=== PATIENT | female | born 1975 | race Two or more races ===

== ENCOUNTER 2017-07-06 11:53 | Emergency (ER) | payer OTHER ==
[~2017-07-06] VITALS: Ht 172.7 cm; Wt 121.1 kg
[~2017-07-06 11:53] MED LIST: CEFADROXIL500 MG PO; INTESTINEX1 CA1 PO; PROTONIX40 MG PO; VALTREX1000 MG PO
== END 2017-07-06 15:42 | disposition home or self-care (01) ==
LOC: ER 11:53
DX: K52.9 Noninfective gastroenteritis and colitis, unspecified (principal)

== ENCOUNTER 2018-02-10 09:36 | Emergency (ER) | payer OTHER ==
[~2018-02-10] VITALS: Ht 167.6 cm; Wt 117.9 kg
[2018-02-10] MEDS ORDERED: NORFLEX100MG PO (13:17)
[2018-02-10] MEDS ORDERED: KETO10TA2 PO (13:17)
== END 2018-02-10 14:02 | disposition home or self-care (01) ==
LOC: ER 09:36
DX: K57.30 Diverticulosis of large intestine without perforation or abscess without bleeding (principal); R10.9 Unspecified abdominal pain

== ENCOUNTER 2018-12-16 09:32 | Emergency (ER) | payer OTHER ==
[~2018-12-16] VITALS: Ht 167.6 cm; Wt 114.3 kg
[~2018-12-16 09:32] MED LIST changes: +KETO10TA2 PO; +NORFLEX100MG PO
== END 2018-12-16 16:02 | disposition home or self-care (01) ==
LOC: ER 09:32
DX: R10.31 Right lower quadrant pain (principal)

== ENCOUNTER 2020-08-31 12:55 | Emergency (ER) | payer OTHER ==
[~2020-08-31] VITALS: Ht 170.2 cm; Wt 127.0 kg
== END 2020-08-31 16:41 | disposition home or self-care (01) ==
LOC: ER 12:55
DX: N39.0 Urinary tract infection, site not specified (principal)

== ENCOUNTER 2020-12-06 11:00 | Inpatient (IN) | payer OTHER ==
[~2020-12-06] VITALS: Ht 167.6 cm; Wt 118.8 kg
[2020-12-13] MEDS ORDERED: CEFADROXIL500 MG PO (06:56)
[2020-12-13] MEDS ORDERED: POLY119PG PO (06:56)
[2020-12-13] MEDS ORDERED: IBUPROFEN800 MG PO (06:56)
[2020-12-13] MEDS ORDERED: SIMETHICONE125 M1 PO (06:56)
[2020-12-13] MEDS ORDERED: NEURONTIN600 MG PO (06:56)
== END 2020-12-13 08:52 | disposition home or self-care (01) | DRG 743 ==
LOC: O/R 12-11 05:30 → OB/GYN 12-11 05:30 → SURH 12-11 11:00 → OB/GYN 12-11 11:12 → SURH 12-11 11:30 → OB/GYN 12-11 13:34
PROVIDERS: ADMIT Obstetrics & Gynecology; ATTEND Obstetrics & Gynecology
PROC: 0UT10ZZ Resection of Left Ovary, Open Approach (ICD-10-PCS; 2020-12-11)
PROC: 0UT60ZZ Resection of Left Fallopian Tube, Open Approach (ICD-10-PCS; 2020-12-11)
PROC: 0UT90ZZ Resection of Uterus, Open Approach (ICD-10-PCS; principal; 2020-12-11 11:30)
DX: D25.1 Intramural leiomyoma of uterus (principal); N72 Inflammatory disease of cervix uteri; N80.0 Endometriosis of uterus; N32.89 Other specified disorders of bladder; N83.12 Corpus luteum cyst of left ovary; N83.6 Hematosalpinx; N93.9 Abnormal uterine and vaginal bleeding, unspecified; R10.2 Pelvic and perineal pain; I10 Essential (primary) hypertension

== ENCOUNTER 2022-12-17 09:49 | Emergency (ER) | payer OTHER ==
[~2022-12-17] VITALS: Ht 167.6 cm; Wt 127.0 kg
[~2022-12-17 09:49] MED LIST changes: +IBUPROFEN800 MG PO; +NEURONTIN600 MG PO; +POLY119PG PO; +SIMETHICONE125 M1 PO
[2022-12-17] MEDS ORDERED: LOSARTAN-HCTZ1 EACH PO (10:23)
== END 2022-12-17 16:51 | disposition home or self-care (01) ==
LOC: ER 09:49
DX: M79.641 Pain in right hand (principal); Z91.013 Allergy to seafood

== ENCOUNTER 2023-05-19 08:20 | Emergency (ER) | payer OTHER ==
[~2023-05-19] VITALS: Ht 167.6 cm; Wt 131.5 kg
[~2023-05-19 08:20] MED LIST changes: +LOSARTAN-HCTZ1 EACH PO
[2023-05-19] MEDS ORDERED: KETOROLAC TROMETHAMINE 30 MG VIAL IM STA (10:18)
== END 2023-05-19 11:05 | disposition home or self-care (01) ==
LOC: ER 08:21
DX: J06.9 Acute upper respiratory infection, unspecified (principal); Z20.822 Contact with and (suspected) exposure to COVID-19; M25.552 Pain in left hip

== ENCOUNTER 2024-04-02 15:19 | Emergency (ER) | payer OTHER ==
[~2024-04-02] VITALS: Ht 160 cm; Wt 99.8 kg
[2024-04-02] MEDS ORDERED: CETIRIZINE HCL 5 MG/5 ML ML PO ONE (17:30)
[2024-04-02] MEDS ORDERED: GUAIFENESIN/DEXTROMETHORPHAN 10ML BLIST.PACK PO ONE ×2 (17:30→17:32)
[2024-04-02] MEDS ORDERED: METHYLPREDNISOLONE SOD SUCC 125 MG VIAL IV ONE (17:30)
[2024-04-02] MEDS ORDERED: IPRATROPIUM/ALBUTEROL SULFATE 3 ML AMPUL.NEB IH SCH (17:30)
[2024-04-02] MEDS ORDERED: METHYLPREDNISOLONE SOD SUCC 125 MG VIAL ONE (17:32)
[2024-04-02] MEDS ORDERED: CETIRIZINE HCL 5MG/5ML BLIST.PACK PO ONE (17:32)
[2024-04-02 18:03] LABS: HEMATOCRIT 39.1 % (36.0-45.00); HEMOGLOBIN 12.8 g/dL (12.0-15.00); MEAN CELL VOLUME 87.3 fL (80.00-100.00); MEAN CORPUSCULAR HEMOGLOBIN 28.6 pg (27.00-32.0); MEAN CORPUSCULAR HGB CONC 32.7 g/dl (32.0-36.0); PLATELET COUNT 571 K/uL (150-450); RED BLOOD COUNT 4.48 M/uL (4.00-6.00); RED CELL DISTRIBUTION WIDTH 13.5 % (11.5-14.5)
[2024-04-02] MEDS ORDERED: IPRATROPIUM/ALBUTEROL SULFATE 3 ML AMPUL.NEB IH ONE (18:47)
[2024-04-02] MEDS ORDERED: ALBUTEROL1.25 MG/3 IH (19:50)
[2024-04-02] MEDS ORDERED: SINGULAIR10 MG PO (19:50)
[2024-04-02] MEDS ORDERED: BENZONATATE150 MG PO (19:50)
[2024-04-02] MEDS ORDERED: MEDROLPACK PO (19:50)
[2024-04-02] MEDS ORDERED: IPRATROPIU0.2 MG/1 M IH (19:50)
[2024-04-02] MEDS ORDERED: TUSSIN DM LIQU118 ML PO (19:57)
== END 2024-04-02 20:58 ==
LOC: ER 15:21
PROVIDERS: General Practice
DX: R53.81 Other malaise (principal); J45.909 Unspecified asthma, uncomplicated; Z20.822 Contact with and (suspected) exposure to COVID-19; I10 Essential (primary) hypertension; Z91.013 Allergy to seafood